=== PATIENT | female | born 1970 | race Caucasian/White ===

== ENCOUNTER 2022-12-06 08:14 | Emergency (ER) | payer OTHER ==
--- NOTE | 2022-12-06 09:37 | RAD REPORT ---
EXAM DESCRIPTION: RAD - Shoulder Left 2 View - 12/06/2022 9:16 am CLINICAL HISTORY: Left shoulder pain FINDINGS: No fracture or dislocation is seen. Small subchondral humeral head cysts. No significant bone or joint abnormality noted.
--- NOTE | 2022-12-06 09:52 | EDPHYS ---
Physician Documentation [facility] Name: Sharonda Virgen Age: 52 yrs Sex: Female : 1970 Arrival Date: 12/06/2022 Time: 08:17 Bed 15 Private MD: ED Physician Aakash Myers HPI: 12/06 14:00 This 52 yrs old Female presents to ER via Ambulatory with complaints of Shoulder Pain. ms3 14:00 52-year-old female with no past medical history presents for left subscapular pain that ms3 is been ongoing for 2 weeks. Patient states she was seen in the [place] ER where an EKG was performed and found to be negative. Patient states she has performed lots of heavy lifting as he recently had purchased land moving to the area. Patient states she has been taking ibuprofen. Patient states her pain is a 9/10 and worse with movement of her left shoulder. Patient denies alleviating factors.. 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 - Social history:: Smoking status: Patient denies any tobacco usage or history of. ROS: 14:00 Constitutional: Negative for fever, and chills. Neck: Negative for injury, pain, and ms3 swelling, Cardiovascular: Negative for chest pain, and palpitations. Respiratory: Negative for shortness of breath, cough, wheezing, and pleuritic chest pain, Abdomen/GI: Negative for abdominal pain, nausea, vomiting, diarrhea, and constipation. 14:00 MS/extremity: Positive for pain, of the Left shoulder. Exam: 14:00 Constitutional: This is a well developed, well nourished patient who is awake, alert, ms3 and in no acute distress. Head/Face: Normocephalic, atraumatic. Neck: Trachea midline, no cervical lymphadenopathy. Supple, full range of motion without nuchal rigidity, or vertebral point tenderness. No Meningismus. Chest/axilla: Normal chest wall appearance and motion. Nontender with no deformity. Cardiovascular: Regular rate and rhythm with a normal S1 and S2. No gallops, murmurs, or rubs. Normal PMI, no JVD. No pulse deficits. Respiratory: Lungs have equal breath sounds bilaterally, clear to auscultation and percussion. No rales, rhonchi or wheezes noted. No increased work of breathing, no retractions or nasal flaring. Abdomen/GI: Soft, non-tender, with normal bowel sounds. No distension or tympany. No guarding or rebound. No evidence of tenderness throughout. Skin: Warm, dry with normal turgor. Normal color with no rashes, no lesions, and no evidence of cellulitis. MS/ Extremity: Pulses equal, no cyanosis. Neurovascular intact. Full, normal range of motion. Vital Signs: 08:26 BP 157 / 96; Pulse 85; Resp 18 S; Temp 98.8(TE); Pulse Ox 100% on R/A; Weight 61.23 kg aa5 (R); Height 5 ft. 4 in. (162.56 cm) (R); 08:45 BP 130 / 94; Pulse 65; Resp 18; Pulse Ox 100% ; ko1 09:37 BP 122 / 78; Pulse 68; Pulse Ox 99% ; ko1 08:26 Body Mass Index 23.17 (61.23 kg, 162.56 cm) aa5 MDM: 08:31 Patient medically screened. ms3 09:29 Independent interpretation of the following test(s) in the Emergency Department X-Ray: ms3 My interpretation is the left shoulder x-ray image negative.. 14:00 Differential diagnosis: humeral head fracture, Muscle spasm versus osteoarthritis. Data ms3 reviewed: vital signs, nurses notes, radiologic studies, plain films, and as a result, I will discharge patient. Counseling: I had a detailed discussion with the patient and/or guardian regarding: the historical points, exam findings, and any diagnostic results supporting the discharge/admit diagnosis, radiology results, the need for outpatient follow up, to return to the emergency department if symptoms worsen or persist or if there are any questions or concerns that arise at home. ED course: Discussed x-ray findings with patient. Patient understands and agrees with plan. Patient has appointment scheduled with Dr. Santiago on Sunday. Patient given prescription for Flexeril and prednisone. Return precautions discussed include worsening symptoms, or any other concerns.. 12/06 08:32 Order name: Shoulder Left (2 View) XRAY; Complete Time: 09:39 ms3 Administered Medications: No medications were administered Disposition Summary: 12/06/22 09:51 Discharge Ordered Location: Home ms3 Condition: Stable ms3 Diagnosis - Pain in left shoulder ms3 Followup: ms3 - With: Christian Ball MD - When: 2 - 3 days - Reason: Recheck today's complaints Discharge Instructions: - Discharge Summary Sheet ms3 - Musculoskeletal Pain ms3 - Shoulder Pain, [id number] ms3 Forms: - Medication Reconciliation Form ms3 - Thank You Letter ms3 - Antibiotic Education ms3 - Prescription Opioid Use ms3 Prescriptions: - Prednisone 20 mg Oral Tablet - take 3 tablets by ORAL route once daily for 5 days; 15 tablet; Refills: 0, ms3 Product Selection Permitted - Cyclobenzaprine 5 mg Oral Tablet - take 1 tablet by ORAL route 3 times per day As needed; 15 tablet; Refills: 0, ms3 Product Selection Permitted Signatures: Dispatcher [employer] Shiar Abbott RN RN aa5 Aakash Myers DO DO ms3
--- NOTE | 2022-12-06 09:52 | ER ---
Nurse's Notes [facility] Name: Sharonda Virgen Age: 52 yrs Sex: Female : 1970 Arrival Date: 12/06/2022 Time: 08:17 Bed 15 Private MD: Diagnosis: Pain in left shoulder Presentation: 12/06 08:26 Chief complaint: Patient states: left shoulder pain x 2 weeks ago. Seen at [place] [facility] aa5 recently. Coronavirus screen: At this time, the client does not indicate any symptoms associated with coronavirus-19. Ebola Screen: Patient denies travel to an Ebola-affected area in the 21 days before illness onset. Initial Sepsis Screen: Does the patient meet any 2 criteria? No. Patient's initial sepsis screen is negative. Does the patient have a suspected source of infection? No. Patient's initial sepsis screen is negative. Risk Assessment: Do you want to hurt yourself or someone else? Patient reports no desire to harm self or others. Onset of symptoms was 2022. 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 - Social history:: Smoking status: Patient denies any tobacco usage or history of. Screenin:45 [facility] ED Fall Risk Assessment (Adult) History of falling in the last 3 months, ko1 including since admission No falls in past 3 months (0 pts) Confusion or Disorientation No (0 pts) Intoxicated or Sedated No (0 pts) Impaired Gait No (0 pts) Mobility Assist Device Used No (0 pt) Altered Elimination No (0 pt) Score/Fall Risk Level 0 - 2 = Low Risk Oriented to surroundings, Maintained a safe environment, Educated pt \T\ family on fall prevention, incl call for assistance when getting out of bed, Assessed \T\ reinforced patient's understanding of fall precautions, Provided non-skid footwear, Hourly rounding (assess needs \T\ fall precautionary measures) done, Used ambulatory aids as needed (educated on \T\ assisted with), Used gait belt as appropriate. Abuse screen: Denies threats or abuse. Denies injuries from another. Nutritional screening: No deficits noted. Tuberculosis screening: No symptoms or risk factors identified. Assessment: 08:45 General: Appears in no apparent distress. uncomfortable, Behavior is calm, cooperative, ko1 appropriate for age. Pain: Complains of pain in left shoulder. Neuro: No deficits noted. Cardiovascular: No deficits noted. Respiratory: No deficits noted. GI: No deficits noted. : No deficits noted. EENT: No deficits noted. Derm: No deficits noted. Musculoskeletal: Reports pain in left shoulder since 2 weeks. Vital Signs: 08:26 BP 157 / 96; Pulse 85; Resp 18 S; Temp 98.8(TE); Pulse Ox 100% on R/A; Weight 61.23 kg aa5 (R); Height 5 ft. 4 in. (162.56 cm) (R); 08:45 BP 130 / 94; Pulse 65; Resp 18; Pulse Ox 100% ; ko1 09:37 BP 122 / 78; Pulse 68; Pulse Ox 99% ; ko1 08:26 Body Mass Index 23.17 (61.23 kg, 162.56 cm) aa5 ED Course: 08:17 Patient arrived in ED. as 08:17 Aakash Myers DO is Attending Physician. ms3 08:25 Arm band placed on. aa5 08:27 Triage completed. aa5 08:34 Meghan Abdalla, RN is Primary Nurse. ko1 08:45 Patient has correct armband on for positive identification. Placed in gown. Bed in low ko1 position. Call light in reach. Side rails up X 1. Pulse ox on. NIBP on. 09:18 Shoulder Left (2 View) XRAY In Process Unspecified. EDMS 09:45 No provider procedures requiring assistance completed. Patient did not have IV access ko1 during this emergency room visit. 09:48 Christian Ball MD is Referral Physician. ms3 Administered Medications: No medications were administered Medication: 08:45 VIS not applicable for this client. ko1 Outcome: 09:51 Discharge ordered by . ms3 09:56 Discharged to home ambulatory. ko1 09:56 Condition: good 09:56 Discharge instructions given to patient, Instructed on discharge instructions, follow up and referral plans. medication usage, Demonstrated understanding of instructions, follow-up care, medications, Prescriptions given X 2. 09:57 Patient left the ED. ko1 Signatures: Dispatcher [employer] EDMS Yesica Cohen Audri, RN RN aa5 Aakash Myers DO DO ms3 Meghan Abdalla, LUDWIN RN ko1 Corrections: (The following items were deleted from the chart) 08:32 08:26 Chief complaint: Patient states: left shoulder pain. Seen at [place] [facility] aa5 recently. aa5 08:32 08:26 BP 157 / 96; Pulse 85bpm; Resp 18bpm; Spontaneous; Pulse Ox 100% RA; Temp 98.8F aa5 Temporal; aa5
[2022-12-06 10:02] VITALS: TEMP 98.8
[2022-12-06 10:05] VITALS: BP 122/78; O2SAT 99
== END 2022-12-06 09:57 | disposition home or self-care (01) ==
LOC: ER 08:14
DX: M25.512 Pain in left shoulder (principal)